=== PATIENT | female | born 2000 | race Caucasian/White ===

== ENCOUNTER 2023-03-08 22:53 | Emergency (ER) | payer MEDICAID, OTHER ==
[~2023-03-08] VITALS: Ht 165.1 cm; Wt 77.0 kg
[2023-03-08] MEDS ORDERED: IBUPROFEN 800 MG TAB PO ONE (23:30)
[2023-03-09] MEDS ORDERED: AMOX875T3 PO (01:20)
[2023-03-09] MEDS ORDERED: MONT-8 PO (01:20)
[2023-03-09] MEDS ORDERED: IBUP-1455 PO (01:20)
[2023-03-09 02:13] VITALS: BP 119/64; PULSE 99; RESP 20; TEMP 98.7; O2SAT 98
== END 2023-03-09 02:13 | disposition home or self-care (01) ==
LOC: ER 22:53
DX: H66.93 Otitis media, unspecified, bilateral (principal)